=== PATIENT | female | born 1945 | race Caucasian/White ===

== ENCOUNTER 2017-03-30 02:21 | Inpatient (IN) ==
[2017-03-25 11:13] LABS: MANUAL DIFF NEEDED? NO; URINE MICRO REVIEW NEEDED? NO; URINE SOURCE CLEAN CATCH
[2017-03-25 11:29] LABS: BASO% 0.3 % (0.0-0.8); EOS# 0.05 X1000 (0.0-0.7); EOS% 0.7 % (0.0-10.0); HEMATOCRIT 37.9 % (37.0-47.0); HEMOGLOBIN 12.4 g/dL (12.0-16.0); LYMPH# 1.48 X1000 (1.2-3.4); LYMPH% 19.9 % (20.5-51.1); MCHC 32.7 g/dL (33-37); MCV 88.8 FL (81-99); MONO# 0.73 X1000 (0.11-0.59); MONO% 9.8 % (1.7-9.3); NEUT% 69.3 % (42.2-75.2); PLT 317 X1000 (130-400); RBC 4.27 XMIL (4.2-5.4)
[2017-03-25 11:35] LABS: BILIRUBIN URINE NEGATIVE (NEGATIVE); BLOOD URINE NEGATIVE (NEGATIVE); COLOR YELLOW; GLUCOSE URINE NEGATIVE (NEGATIVE); LEUKOCYTES URINE SMALL (NEGATIVE); NITRITE URINE POSITIVE (NEGATIVE); PH URINE 6.5; PROTEIN URINE TRACE mg/dL (NEGATIVE); SP GRAVITY URINE 1.016; TURBIDITY URINE CLEAR (CLEAR); UROBILINOGEN URINE NORMAL (NORMAL)
[2017-03-25 11:36] LABS: UR EPITHELIAL CELLS <10 /HPF (<10); URINE BACTERIA 4+ /HPF; URINE RBC <10 /HPF (<10)
[2017-03-25 11:37] LABS: INR 1.02; PROTIME 10.7 Seconds (9.2-11.7)
--- NOTE | 2017-03-25 11:54 | EKG Report ---
Test Performed on : 03/25/2017 10:43:12 AM Test Reason : PAT Blood Pressure : / mmHG Vent. Rate : 090 BPM Atrial Rate : 090 BPM P-R Int : 112 ms QRS Dur : 084 ms QT Int : 340 ms P-R-T Axes : -17 -26 031 degrees QTc Int : 415 ms Normal sinus rhythm. Minimal voltage criteria for LVH, may be normal variant Anterolateral infarct , age undetermined Abnormal ECG When compared with ECG of 30-JAN-2017 10:55, Anterolateral infarct is now present Confirmed by Daniel SRINIVASAN, Justyn Larry ([id number]) on 03/25/2017 4:17:39 PM
[2017-03-25 11:59] LABS: AGAP 13; BUN 8 mg/dL (8-22); CALCIUM 9.5 mg/dL (8.8-10.2); CHLORIDE 97 mmol/L (98-107); COSMO 273; POTASSIUM 3.7 mmol/L (3.5-5.1); SODIUM 137 mmol/L (136-145); TCO2 27 mmol/L (25-35)
[2017-03-30] MEDS ORDERED: COLACE ONE (12:41)
[2017-03-30] MEDS ORDERED: VANCOMYCIN 1 GM/NS 1 GM/250 ML IVPB ONE (12:42)
[2017-03-30] MEDS ORDERED: CELEBREX ONE (12:42)
[2017-03-30] MEDS ORDERED: PEPCID ONE (12:42)
[2017-03-30] MEDS ORDERED: REGLAN ONE (12:42)
[2017-03-30] MEDS ORDERED: LR 1,000 ML ONE (12:42)
[2017-03-30] MEDS ORDERED: LYRICA ONE (12:42)
[2017-03-30] MEDS ORDERED: VANCOMYCIN ONE (14:32)
[2017-03-30] MEDS ORDERED: MARCAINE 0.25% PF/EPI 1:200,000 ONE (14:32)
[2017-03-30] MEDS ORDERED: CYKLOKAPRON 1,000 MG/NS 1,000 MG/100 ML IVPB ONE ×2 (14:32→14:33)
[2017-03-30] MEDS ORDERED: TORADOL ONE (14:32)
[2017-03-30] MEDS ORDERED: SODIUM CHLORIDE 0.9% ONE (14:32)
[2017-03-30] MEDS ORDERED: EXPAREL 1.3% ONE (14:33)
[2017-03-30] MEDS ORDERED: NEOSPORIN G.U. IRRIGANT ONE (14:33)
[2017-03-30 16:22] LABS: URINE MICRO REVIEW NEEDED? NO; URINE SOURCE CATH
[2017-03-30 16:42] LABS: BILIRUBIN URINE NEGATIVE (NEGATIVE); BLOOD URINE NEGATIVE (NEGATIVE); COLOR ORANGE; GLUCOSE URINE NEGATIVE (NEGATIVE); LEUKOCYTES URINE SMALL (NEGATIVE); NITRITE URINE NEGATIVE (NEGATIVE); PH URINE 6.5; PROTEIN URINE 30 mg/dL (NEGATIVE); SP GRAVITY URINE 1.013; TURBIDITY URINE TURBID (CLEAR); UROBILINOGEN URINE NORMAL (NORMAL)
[2017-03-30 16:43] LABS: UR EPITHELIAL CELLS <10 /HPF (<10); URINE BACTERIA NEGATIVE /HPF; URINE RBC <10 /HPF (<10); URINE WBC <10 /HPF (<10)
[2017-03-30] MEDS ORDERED: DILAUDID ONE (17:44)
[2017-03-30] MEDS ORDERED: FENTANYL ONE (17:44)
[2017-03-30] MEDS ORDERED: DIPRIVAN 1% ONE (17:44)
[2017-03-30] MEDS ORDERED: MILK OF MAGNESIA PO PRN (18:00)
[2017-03-30] MEDS ORDERED: MORPHINE IV PRN (18:00)
[2017-03-30] MEDS ORDERED: ZOFRAN IV PRN (18:00)
[2017-03-30] MEDS ORDERED: NS 1,000 ML ONE (18:04)
[2017-03-30] MEDS ORDERED: AMBIEN PO PRN (18:51)
--- NOTE | 2017-03-30 20:23 | OPERATIVE NOTE ---
PROCEDURE DATE: 03/30/2017 PREOPERATIVE DIAGNOSIS: Left knee degenerative joint disease. POSTOPERATIVE DIAGNOSIS: Left knee degenerative joint disease. PROCEDURE PERFORMED: Left total knee arthroplasty using a [employer] size 4 femoral component, size 4 tibial base plate, an 11 mm articular insert, and a 32 mm patellar component. ANESTHESIA: Spinal. SURGEON: Damian Duvall MD. VISUAL LEAD: Yuliana Steven PA-C. 2ND VISUAL LEAD: Patrice Anna PA-C. COMPLICATIONS: None. BLOOD LOSS: Minimal. DRAINS: Hemovac x1. DESCRIPTION OF PROCEDURE: The patient was brought to the operative suite and placed in supine position. After successful administration of general anesthesia, a well-padded tourniquet was placed on the left proximal thigh. The left lower extremity was prepped and draped in usual sterile fashion. Leg was exsanguinated. Tourniquet insufflated to 350 torr. A longitudinal incision was made beginning at the superior pole of the patella and extended distally to the tibial tuberosity. This was dissected sharply through skin and subcutaneous tissue, down to the fascia and then the full-thickness skin flaps were elevated medially and laterally. A medial arthrotomy was made with a vastus snip. The medial capsule was elevated off the medial tibial plateau. The prepatellar fat pad, ACL, PCL, medial meniscus, lateral meniscus were excised. A drill was then entered in the center of the distal femur. An intramedullary guide was placed, distal cutting block was pinned in place, distal cut was made with the oscillating saw. The femur was sized to size 4. Size 4 cutting block was pinned in place. The anterior cuts, chamfer cuts, and posterior condylar cuts were made with the oscillating saw. She had a deficient posterior condyle. The box cutting block was then pinned into place. A box cut was made with a box osteotome and oscillating saw. Posterior condyle osteophytes removed a curved osteotome and rongeur. Attention was then directed to the tibia. A drill was entered in the center of the tibia. An intramedullary guide was placed. Alignment checked with drop sugey, referencing off the anterior cortex of the tibia, taking 4 mm off the lower side of the tibia which, in this case, was medially. The tibial cutting block was pinned into place. The articular surface of the tibial plateau was removed with an oscillating saw. Flexion-extension gaps were checked and balanced at 11 mm. The tibia sized to size 4. A size 4 guide was used for the fin punch. The tibial trial, femoral trial, and 11 mm articular insert were placed, taken through range of motion and found to have excellent alignment, balancing and range of motion. Attention was then directed to the patella and 9 mm of the articular surface of the patella was removed with an oscillating saw. The patella was sized to a size 32. A size 32 guide was used to drill peg holes. The lateral facet was chamfered 30 to 45 degrees. Patella trial was placed, taken through range of motion, found have excellent patella tracking. All trials were then removed. The knee was copiously irrigated and dried, being certain all bone debris was removed. The tibial component, femoral component, patellar component were cemented in place, excess cement being removed with a [place]. Once the cement had hardened, excess cement was again removed with an osteotome. The knee was again copiously irrigated and dried, being certain all bone and cement debris were removed. The trial articular insert was removed. Knee was copiously infiltrated with Exparel, including the posterior capsule, anterior capsule, medial and lateral collateral ligaments, anterior musculature, and subcutaneous tissue. A drain was placed exiting superolaterally and buried in the lateral gutter. The definitive articular insert was locked into place. Knee was again taken through range of motion and again, found to have excellent alignment, balancing, range of motion and patellar tracking. The knee was again copiously irrigated and dried, and then the medial arthrotomy was closed with a running V-Loc 0 suture. The skin edges were approximated with 2-0 Vicryl. Skin was closed with 3-0. A sterile dressing was applied. The patient tolerated the procedure well without complication. At the end of the procedure, all counts were correct x2. The patient was transferred to the recovery room in stable condition. cc: Damian Duvall MD
[2017-03-30] MEDS: TYLENOL PO SCH (20:44)
[2017-03-30] MEDS: ULTRAM PO SCH (20:45)
[2017-03-30] MEDS: LYRICA PO SCH (20:45)
[2017-03-30] MEDS: PERIDEX MT SCH (20:45)
[2017-03-30] MEDS: NS 1,000 ML IV SCH (20:45)
[2017-03-30] MEDS: COLACE PO SCH (20:45)
[2017-03-30] MEDS ORDERED: CELEBREX PO SCH (21:00)
[2017-03-30] MEDS ORDERED: COLACE PO SCH (21:00)
[2017-03-30] MEDS: XALATAN 0.005% OPH SOLN BOTH EYES SCH (23:00)
[2017-03-31] MEDS ORDERED: VANCOMYCIN 1 GM/NS 1 GM/250 ML IVPB IV ONE (02:30)
[2017-03-31] MEDS: ULTRAM PO SCH ×4 (02:39→19:48)
[2017-03-31] MEDS: TYLENOL PO SCH ×4 (02:39→19:48)
[2017-03-31] MEDS: XARELTO PO SCH (05:42)
[2017-03-31] MEDS: SYNTHROID PO SCH ×2 (05:43→06:41)
[2017-03-31 06:11] LABS: HEMATOCRIT 31.3 % (37.0-47.0)
[2017-03-31 06:26] LABS: AGAP 9; BUN 11 mg/dL (8-22); CALCIUM 8.3 mg/dL (8.8-10.2); CHLORIDE 104 mmol/L (98-107); COSMO 272; POTASSIUM 5.4 mmol/L (3.5-5.1); SODIUM 136 mmol/L (136-145); TCO2 23 mmol/L (25-35)
--- NOTE | 2017-03-31 08:36 | PROGRESS NOTE ---
DATE: 03/31/2017 SUBJECTIVE: Ms. Pathak is a 71-year-old female who is postoperative day 1 from a left total knee arthroplasty. She has no new complaints. Her vital signs are stable. OBJECTIVE: General: She is a well developed, well-nourished female. She is alert, oriented, and cooperative with the examination. Vital Signs: Stable and she is afebrile. Skin: Her dressing is clean, dry, and intact without sign of infection. Extremities: Her leg is neurovascularly intact and she has intact sensation to light touch. LABORATORY DATA: Her hematocrit is 31.3 and her hemoglobin is 10. She has had 50 mL of drainage from her Hemovac. ASSESSMENT: Postoperative day 1 from a left total knee arthroplasty. PLAN: We plan to begin physical therapy today and we plan to send her to rehab later this week. Dictated by CARMELINA Kingston for Damian Duvall MD cc: CARMELINA Kingston MD
[2017-03-31] MEDS ORDERED: DECADRON IV ONE (09:00)
[2017-03-31] MEDS ORDERED: OFIRMEV 1000 MG/ISOTONIC SOLN 1,000 MG/100 ML BOTTLE ONE (09:12)
[2017-03-31] MEDS ORDERED: LR 1,000 ML ONE (09:12)
[2017-03-31] MEDS ORDERED: XYLOCAINE-MPF 2% ONE (09:12)
[2017-03-31] MEDS ORDERED: DECADRON ONE (09:13)
[2017-03-31] MEDS: PERIDEX MT SCH ×2 (09:24→19:47)
[2017-03-31] MEDS: ALEVE PO SCH (09:24)
[2017-03-31] MEDS: PEPCID PO SCH (09:25)
[2017-03-31] MEDS: COLACE PO SCH ×2 (09:26→19:48)
[2017-03-31] MEDS: METAMUCIL PO SCH ×2 (09:26)
[2017-03-31] MEDS: PRINZIDE 20/12.5MG PO SCH (09:26)
[2017-03-31] MEDS: LYRICA PO SCH ×2 (09:26→19:48)
[2017-03-31] MEDS: OXY IR PO PRN ×4 (11:17→22:28)
[2017-03-31] MEDS: NS 1,000 ML IV SCH (17:52)
[2017-03-31] MEDS ORDERED: MORPHINE IV ONE (19:00)
[2017-03-31] MEDS: XALATAN 0.005% OPH SOLN BOTH EYES SCH (22:27)
[2017-03-31] MEDS: ATIVAN PO PRN (22:28)
[2017-03-31] MEDS: AMBIEN PO PRN (22:28)
[2017-04-01] MEDS: ULTRAM PO SCH ×4 (02:35→19:47)
[2017-04-01] MEDS: TYLENOL PO SCH ×4 (02:35→19:47)
[2017-04-01 06:19] LABS: HEMATOCRIT 27.1 % (37.0-47.0); HEMOGLOBIN 8.4 g/dL (12.0-16.0)
[2017-04-01] MEDS: XARELTO PO SCH (06:23)
[2017-04-01] MEDS: OXY IR PO PRN ×2 (06:23→22:25)
[2017-04-01] MEDS: SYNTHROID PO SCH (06:23)
--- NOTE | 2017-04-01 07:40 | PROGRESS NOTE ---
DATE: 04/01/2017 SUBJECTIVE: Kiara Pathak is a 71-year-old female who is postoperative day 2 from a left total knee arthroplasty. She states she had a bad day yesterday but is doing better today. OBJECTIVE: General: She is a well-developed, well-nourished female. She is alert, oriented, and cooperative exam. Extremities: Exam of her knee reveals the incision is well approximated. There is no sign of drainage. Her leg is neurovascularly intact. LABORATORY: Her hemoglobin is 8.4. Her hematocrit is 27.1. She walked 100 feet yesterday. ASSESSMENT: Stable postoperative day 2 visit from a left total knee arthroplasty. PLAN: We will continue to work with physical therapy today. She can hopefully be transferred to rehab tomorrow. cc: Damian Duvall MD
[2017-04-01] MEDS: LYRICA PO SCH ×3 (07:58→19:47)
[2017-04-01] MEDS: COLACE PO SCH ×3 (07:58→19:47)
[2017-04-01] MEDS: PERIDEX MT SCH ×4 (07:58→22:26)
[2017-04-01] MEDS: PRINZIDE 20/12.5MG PO SCH (09:46)
[2017-04-01] MEDS: ALEVE PO SCH (09:47)
[2017-04-01] MEDS: PEPCID PO SCH (09:48)
[2017-04-01] MEDS: METAMUCIL PO SCH ×2 (09:48)
--- NOTE | 2017-04-01 11:33 | Diag Imaging Result Doc PS360 ---
CHEST-PORTABLE - 04/01/2017 INDICATION: rehab placement TECHNIQUE: COMPARISON: None FINDINGS: The lungs are normally expanded and clear. Heart size and mediastinal contours are normal. No pneumothorax or pleural effusion. IMPRESSION: Negative exam. Electronically signed by Gregory Olivas 04/01/2017 11:31 AM
[2017-04-01] MEDS: XALATAN 0.005% OPH SOLN BOTH EYES SCH (22:24)
[2017-04-01] MEDS: AMBIEN PO PRN (22:24)
[2017-04-01] MEDS: ATIVAN PO PRN (22:25)
[2017-04-01] MEDS: METAMUCIL POWDER PACKET PO SCH (22:26)
[2017-04-02] MEDS: COLACE PO SCH ×2 (00:48→08:32)
[2017-04-02] MEDS: LYRICA PO SCH ×2 (01:01→08:32)
[2017-04-02] MEDS: TYLENOL PO SCH ×2 (02:09→08:33)
[2017-04-02] MEDS: ULTRAM PO SCH ×2 (02:09→08:33)
[2017-04-02 06:10] LABS: HEMATOCRIT 27.3 % (37.0-47.0); HEMOGLOBIN 8.4 g/dL (12.0-16.0)
[2017-04-02] MEDS ORDERED: DULCOLAX PR PRN (06:10)
[2017-04-02] MEDS: OXY IR PO PRN (06:38)
[2017-04-02] MEDS: SYNTHROID PO SCH (06:39)
[2017-04-02] MEDS: XARELTO PO SCH (06:39)
--- NOTE | 2017-04-02 07:53 | DISCHARGE SUMMARY ---
ADMISSION DATE: 03/30/2017 DISCHARGE DATE: 04/02/2017 DISCHARGE DIAGNOSIS: Left knee degenerative joint disease, status post left total knee arthroplasty. DISCHARGE MEDICATIONS: See discharge medication list. DISPOSITION: The patient is discharged to rehab. DISCHARGE INSTRUCTIONS: Instruction for total knee arthroplasty protocol and instructed to return to see Dr. Duvall next . HOSPITAL COURSE: On the day of admission, the patient underwent a left total knee arthroplasty. Her postoperative course was unremarkable. At discharge, she is afebrile, tolerating a regular diet, ambulating well with physical therapy. Yesterday, she walked 225 feet. Her hemoglobin is 8.4 and her hematocrit is 27.3. Her wound is clean, dry, and intact without signs of infection. She is discharged to rehab in stable condition with instructions to follow up as described above. Dictated by CARMELINA Kingston for Damian Duvall MD cc: CARMELINA Kingston MD
[2017-04-02 07:55] VITALS: BP 126/68
[2017-04-02] MEDS: PERIDEX MT SCH (08:32)
[2017-04-02] MEDS: PEPCID PO SCH (08:32)
[2017-04-02] MEDS: ALEVE PO SCH (08:33)
[2017-04-02] MEDS: METAMUCIL POWDER PACKET PO SCH (08:36)
[2017-04-02] MEDS: PRINZIDE 20/12.5MG PO SCH (11:06)
== END 2017-04-02 11:11 ==
LOC: SURHOLD 02:21 → 4N 17:40
PROVIDERS: ADMIT Orthopaedic Surgery; ATTEND Orthopaedic Surgery